=== PATIENT | male | born 1980 | race Two or more races ===

== ENCOUNTER 2019-12-25 11:21 | Emergency (ER) | payer BC, OTHER ==
--- NOTE | 2019-12-25 11:42 | ER Document Report ---
ED Medical Screen (RME) - General Chief Complaint: Chest Tightness Stated Complaint: SHORT OF BREATH,CHEST TIGHTNESS Time Seen by Provider: 12/25/19 11:33 Primary Care Provider: MARISOL MOON [Primary Care Provider] - Follow up as needed Notes: Patient is a 38-year-old male who presents to the emergency department with a chief complaint of shortness of breath and chest tightness that started at 730 this morning. He went to urgent care and was referred here to the emergency department. Patient states that he has a history of asthma when he was a child, but grew out of it. He denies any smoking or drug use. Exam: Sinus rhythm on twelve-lead EKG; clear breath sounds throughout all lung vasquez. I have greeted and performed a rapid initial assessment of this patient. A comprehensive ED assessment and evaluation of the patient, analysis of test results and completion of medical decision making process will be conducted by an additional ED providers. - Related Data Allergies/Adverse Reactions: No Known Allergies Allergy (Verified 07/31/13 11:23) Past Medical History - Immunizations Hx Diphtheria, Pertussis, Tetanus Vaccination: Yes Physical Exam - Vital signs Vitals: Temp Pulse Resp BP Pulse Ox 98.5 F 84 18 145/87 H 97 12/25/19 11:33 12/25/19 11:33 12/25/19 11:33 12/25/19 11:33 12/25/19 11:33 Course - Vital Signs Vital signs: Temp Pulse Resp BP Pulse Ox 98.5 F 84 18 145/87 H 97 12/25/19 11:33 12/25/19 11:33 12/25/19 11:33 12/25/19 11:33 12/25/19 11:33 Doctor's Discharge - Discharge Referrals: MARISOL MOON [Primary Care Provider] - Follow up as needed
[2019-12-25 12:17] LABS: ABSOLUTE EOSINOPHILS # (AUTO) 0.1 10^3/uL (0.0-0.6); ABSOLUTE LYMPHOCYTES (AUTO) 1.5 10^3/uL (0.5-4.7); ABSOLUTE MONOCYTES (AUTO) 0.4 10^3/uL (0.1-1.4); ABSOLUTE NEUT (AUTO) 6.5 10^3/uL (1.7-8.2); BASOPHILS % (AUTO) 0.5 % (0-2); EOSINOPHILS % (AUTO) 0.9 % (0-6); HEMOGLOBIN 15.8 g/dL (13.5-17.0); LYMPHOCYTES % (AUTO) 17.4 % (13-45); MEAN CORPUSCULAR HEMOGLOBIN 31.1 pg (27.0-33.4); MEAN CORPUSCULAR HGB CONC 35.9 g/dL (32.0-36.0); MEAN CORPUSCULAR VOLUME 87 fl (80-97); PLATELET COUNT 368 10^3/uL (150-450); RED BLOOD COUNT 5.07 10^6/uL (4.35-5.55); RED CELL DISTRIBUTION WIDTH 12.2 % (11.5-14.0); SEGMENTED NEUTROPHILS % (AUTO) 76.2 % (42-78); TOTAL CELLS COUNTED % (AUTO) 100 %; WHITE BLOOD COUNT 8.5 10^3/uL (4.0-10.5)
--- NOTE | 2019-12-25 12:19 | RADIOLOGY REPORT (SQ) ---
EXAM DESCRIPTION: CHEST 2 VIEWS COMPLETED DATE/TIME: 12/25/2019 11:51 am REASON FOR STUDY: shortness of breath; chest tightness COMPARISON: None. TECHNIQUE: Frontal and lateral radiographic views of the chest acquired. NUMBER OF VIEWS: Two view. LIMITATIONS: None. FINDINGS: LUNGS AND PLEURA: No opacities, masses or pneumothorax. No pleural effusion. MEDIASTINUM AND HILAR STRUCTURES: No masses or contour abnormalities. HEART AND VASCULAR STRUCTURES: Heart normal size. No evidence for failure. BONES: No acute findings. HARDWARE: None in the chest. OTHER: No other significant finding. IMPRESSION: NO SIGNIFICANT RADIOGRAPHIC FINDING IN THE CHEST. TECHNICAL DOCUMENTATION: JOB ID: [id number] 2010 [employer]- All Rights Reserved Reading location - IP/workstation name: [email or web address]
[2019-12-25 12:34] LABS: ALBUMIN 4.6 g/dL (3.5-5.0); ALKALINE PHOSPHATASE 101 U/L (38-126); ANION GAP 9 (5-19); ASPARTATE AMINO TRANSFERASE 25 U/L (17-59); BILIRUBIN,DIRECT 0.3 mg/dL (0.0-0.4); BILIRUBIN,TOTAL 0.5 mg/dL (0.2-1.3); BLOOD UREA NITROGEN 13 mg/dL (7-20); CALCIUM 9.5 mg/dL (8.4-10.2); CARBON DIOXIDE 25 mmol/L (22-30); CHLORIDE 106 mmol/L (98-107); GLUCOSE 107 mg/dL (75-110); POTASSIUM 4.3 mmol/L (3.6-5.0)
[2019-12-25 12:45] LABS: NT PRO BNP 22 pg/mL (<125)
[2019-12-25 12:46] LABS: TROPONIN I < 0.012 ng/mL
[2019-12-25] MEDS ORDERED: ASPIRIN 81 MG TABLET, CHEWABLE PO ONE (13:54)
[2019-12-25] MEDS ORDERED: NITROGLYCERIN 2% OINTMENT 1 GM PACKET TP ONE (13:54)
--- NOTE | 2019-12-25 14:01 | ER Document Report ---
ED Cardiac - General Chief Complaint: Chest Tightness Stated Complaint: SHORT OF BREATH,CHEST TIGHTNESS Time Seen by Provider: 12/25/19 11:33 Primary Care Provider: MARISOL MOON [NO LOCAL MD] - Follow up as needed Information source: Patient Notes: Patient is a 38-year-old male who is referred here from urgent care for further evaluation of substernal chest pain. Denies radiation. Chest pain started at rest. He has a known history of asthma for which she takes an inhaler. His cardiac risk factors are elevated BMI and hypertension here. He denies any abdominal pain. He has not yet had aspirin; I have ordered the same. Denies trauma. No diaphoresis. Mild shortness of breath with chest tightness. No rashes. No other complaints. No fevers or chills. - Related Data Allergies/Adverse Reactions: No Known Allergies Allergy (Verified 07/31/13 11:23) Past Medical History - General Information source: Patient - Social History Smoking Status: Never Smoker Chew tobacco use (# tins/day): No Frequency of alcohol use: None Drug Abuse: None Family History: None Patient has suicidal ideation: No Patient has homicidal ideation: No - Immunizations Hx Diphtheria, Pertussis, Tetanus Vaccination: Yes Review of Systems - Review of Systems Cardiovascular: Chest pain. denies: Palpitations Respiratory: Short of breath. denies: Cough -: Yes All other systems reviewed and negative Physical Exam - Vital signs Vitals: Temp Pulse Resp BP Pulse Ox 98.5 F 84 18 145/87 H 97 12/25/19 11:33 12/25/19 11:33 12/25/19 11:33 12/25/19 11:33 12/25/19 11:33 Interpretation: Hypertensive - General General appearance: Appears well - HEENT Head: Normocephalic Nasal: Normal Mucous membranes: Normal Pharynx: Normal - Respiratory Respiratory status: No respiratory distress Chest status: Nontender Breath sounds: Normal Chest palpation: Normal - Cardiovascular Rhythm: Regular Heart sounds: Normal auscultation Murmur: No - Abdominal Inspection: Normal Distension: No distension Tenderness: Nontender - Back Back: Normal. No: CVA tenderness - Extremities General upper extremity: Normal inspection, Normal ROM General lower extremity: Normal inspection, Normal ROM - Neurological Neuro grossly intact: Yes Cognition: Normal - Psychological Associated symptoms: Normal affect, Normal mood - Skin Skin Temperature: Warm Skin Moisture: Dry Course - Re-evaluation Re-evalutation: 12/25/19 13:59 EKG per mt shows normal sinus rhythm at a rate of 86 with left axis deviation and nonspecific ST changes. No old EKG for comparison. Lab work reviewed including a negative troponin. Chest x-ray per radiologist no acute disease. Given patient's cardiac risk factors I will call the hospitalist for admission. Patient is currently stable. 12/25/19 14:[address] LA, WHO REQUESTS ADMISSION VIA DR. LOVE. PT STABLE. 12/25/19 14:16 DISCUSSED CASE IN DETAIL WITH DR. LOVE, WHO REQUESTS 3PM TROPONIN AND WILL DISCUSS WITH COMPLEX DIRECTOR. 12/25/19 16:[address] MORRIS AT 4PM, PENDING REPEAT TROPONIN TEST AND DISPOSITION. PT COMFORTABLE. - Vital Signs Vital signs: Temp Pulse Resp BP Pulse Ox 98.5 F 84 20 115/54 L 91 L 12/25/19 11:33 12/25/19 11:33 12/25/19 15:01 12/25/19 15:01 12/25/19 15:01 - Laboratory Result Diagrams: 12/25/19 12:04 12/25/19 12:04 Discharge - Discharge Clinical Impression: Chest pain Qualifiers: Chest pain type: unspecified Qualified Code(s): R07.9 - Chest pain, unspecified Hypertension Qualifiers: Hypertension type: unspecified Qualified Code(s): I10 - Essential (primary) hypertension Condition: Stable Disposition: ADMITTED INPATIENT Admitting Provider: Mike (Hospitalist) Unit Admitted: Telemetry Referrals: MARISOL MOON [NO LOCAL MD] - Follow up as needed
--- NOTE | 2019-12-25 15:27 | EKG REPORT ---
SEVERITY:- BORDERLINE ECG - SINUS RHYTHM BORDERLINE LEFT AXIS DEVIATION NONSPECIFIC IVCD : Confirmed by: Pavel Rosario MD 25-Dec-2019 15:26:32
[2019-12-25 17:27] VITALS: BP 134/75
== END 2019-12-25 17:16 | disposition home or self-care (01) ==
LOC: ER 11:21 → EH 16:17 → UNDOADMIN 16:17 → UNDODISIN 17:16 → EH 17:16
DX: R07.9 Chest pain, unspecified (principal); I10 Essential (primary) hypertension; R06.02 Shortness of breath; J45.909 Unspecified asthma, uncomplicated; Z79.51 Long term (current) use of inhaled steroids
CPT/HCPCS: 36415; 71046; 80053; 83880; 84484; 85025; 93005; 93010; 99285

== ENCOUNTER 2019-12-29 21:04 | Emergency (ER) | payer BC ==
--- NOTE | 2019-12-29 22:07 | EKG REPORT ---
SEVERITY:- ABNORMAL ECG - SINUS RHYTHM NONSPECIFIC INTRAVENTRICULAR CONDUCTION DELAY : Confirmed by: Pavel Rosario MD 29-Dec-2019 22:07:32
[2019-12-30 00:17] VITALS: BP 130/69
--- NOTE | 2019-12-30 01:13 | ER Document Report ---
HPI - HPI Time Seen by Provider: 12/30/19 01:03 Pain Level: Denies Notes: Otherwise healthy 39-year-old male presenting to the emergency department chief complaint of shortness of breath. Patient reports he had shortness of breath a few days ago, was seen in the emergency department and had a normal exam. Patient reports he was sent home with an albuterol inhaler and albuterol for his nebulizer machine. Patient reports earlier today he was feeling anxious and st arted having some shortness of breath. At the time of my evaluation patient reports all symptoms have resolved. - CONSTITUTIONAL Constitutional: DENIES: Fever, Chills - EENT EENT: DENIES: Sore Throat, Ear Pain, Eye problems - NEURO Neurology: DENIES: Headache, Weakness, Vision blurred, Dizzinesss / Vertigo - CARDIOVASCULAR Cardiovascular: DENIES: Chest pain - RESPIRATORY Respiratory: REPORTS: Trouble Breathing - SOB. DENIES: Coughing - GASTROINTESTINAL Gastrointestinal: DENIES: Abdominal Pain, Black / Bloody Stools - URINARY Urinary: DENIES: Dysuria, Urgency, Frequency - MUSCULOSKELETAL Musculoskeletal: DENIES: Extremity pain Past Medical History - General Information source: Patient - Social History Smoking Status: Never Smoker Chew tobacco use (# tins/day): No Frequency of alcohol use: None Drug Abuse: None Family History: None Patient has suicidal ideation: No Patient has homicidal ideation: No Pulmonary Medical History: Reports: Hx Asthma - childhood - Immunizations Hx Diphtheria, Pertussis, Tetanus Vaccination: Yes Vertical Provider Document - CONSTITUTIONAL Notes: PHYSICAL EXAMINATION: GENERAL: Well-appearing, well-nourished and in no acute distress. HEAD: Atraumatic, normocephalic. EYES: Pupils equal round and reactive to light, extraocular movements intact, sclera anicteric, conjunctiva are normal. ENT: Nares patent, oropharynx clear without exudates. Moist mucous membranes. NECK: Normal range of motion, supple without lymphadenopathy LUNGS: Breath sounds clear to auscultation bilaterally and equal. No wheezes rales or rhonchi. HEART: Regular rate and rhythm without murmurs ABDOMEN: Soft, nontender, nondistended abdomen. No guarding, no rebound. No m asses appreciated. Musculoskeletal: Normal range of motion, no pitting or edema. No cyanosis. NEUROLOGICAL: Cranial nerves grossly intact. Normal speech, normal gait. Normal sensory, motor exams PSYCH: Normal mood, normal affect. SKIN: Warm, Dry, normal turgor, no rashes or lesions noted. Course - Re-evaluation Re-evalutation: 12/30/19 01:18 Patient appears well, nontoxic. At the time of my initial evaluation patient has been waiting in the lobby for about 3 hours. His initial vital signs coming into the emergency department were within normal limits. According to the triage nurses notes he had no tachypnea, hypoxia or shortness of breath in triage. She reports his lungs were clear at that time. At the time of my evaluation patient has had a second set of vital signs which were also normal. His lung sounds are clear and equal bilaterally. He denies any shortness of breath and states that he is feeling improved. He has an appointment set up with cardiology for Monday as he was here the other day with some shortness of breath and chest pain. Patient adamantly denies any symptoms at this time and will be discharged home in stable condition. - Vital Signs Vital signs: Temp Pulse Resp BP Pulse Ox 98.0 F 59 L 18 130/69 H 97 12/30/19 00:17 12/30/19 00:17 12/29/19 21:42 12/30/19 00:17 12/30/19 00:17 Discharge - Discharge Clinical Impression: Shortness of breath Condition: Stable Disposition: HOME, SELF-CARE Additional Instructions: Your vital signs were reassuring here in the emergency department today. Since your shortness of breath has resolved I do not think we will benefit from doing any further work-up today. Please keep the appointment you have with your home demonstrator. Continue to use albuterol treatments if needed for shortness of breath. Return to the emergency department for any new or life-threatening concerns.
== END 2019-12-30 01:17 | disposition home or self-care (01) ==
LOC: ER 21:04
DX: R06.02 Shortness of breath (principal)
CPT/HCPCS: 93005; 93010; 99283

== ENCOUNTER → 2020-07-14 | Outpatient (CLI) | payer BC ==
--- NOTE | 2020-07-14 16:13 | RADIOLOGY REPORT (SQ) ---
EXAM DESCRIPTION: CHEST PA/LATERAL IMAGES COMPLETED DATE/TIME: 07/14/2020 4:00 pm REASON FOR STUDY: (R06.00) DYSPNEA COMPARISON: 12/25/2019 EXAM PARAMETERS: NUMBER OF VIEWS: two views TECHNIQUE: Digital Frontal and Lateral radiographic views of the chest acquired. RADIATION DOSE: NA LIMITATIONS: none FINDINGS: LUNGS AND PLEURA: No opacities, masses or pneumothorax. No pleural effusion. MEDIASTINUM AND HILAR STRUCTURES: No masses or contour abnormalities. HEART AND VASCULAR STRUCTURES: Heart normal size. No evidence for failure. BONES: No acute findings. HARDWARE: None in the chest. OTHER: No other significant finding. IMPRESSION: NO SIGNIFICANT RADIOGRAPHIC FINDING IN THE CHEST. TECHNICAL DOCUMENTATION: JOB ID: [id number] 2010 [employer]- All Rights Reserved Reading location - IP/workstation name: [email or web address]
== END ==
LOC: OD 15:50
PROVIDERS: ATTEND Internal Medicine Pulmonary Disease
DX: R06.00 Dyspnea, unspecified (principal)
CPT/HCPCS: 71046

== ENCOUNTER 2020-08-29 19:47 | Emergency (ER) | payer BC ==
--- NOTE | 2020-08-29 20:48 | ER Document Report ---
ED Medical Screen (RME) - General Chief Complaint: Shortness Of Breath Stated Complaint: SHORTNESS OF BREATH, POSITIVE COVID 10DAYS AGO Time Seen by Provider: 08/29/20 20:40 Primary Care Provider: YAYO CAMACHO MD [Primary Care Provider] - Follow up as needed Mode of Arrival: Ambulatory Information source: Patient Notes: 39-year-old male presents to ED for complaint of shortness of breath. He states is been short of breath and coughing worse for the last couple days. He states he was short of breath coughing and was fever a couple weeks ago but the fever is gone now. He states he was tested 10 days ago and tested positive for Covid. He states now the cough is nonproductive but he still has cough and wheezing. He is alert oriented respirations regular nonlabored at this time. He does have an elevated blood pressure. He states he is never been told he had elevated blood pressure in the past. I have greeted and performed a rapid initial assessment of this patient. A comprehensive ED assessment and evaluation of the patient, analysis of test results and completion of medical decision making process will be conducted by an additional ED providers. - Related Data Allergies/Adverse Reactions: No Known Allergies Allergy (Verified 07/31/13 11:23) Past Medical History Pulmonary Medical History: Reports: Hx Asthma - childhood - Immunizations Hx Diphtheria, Pertussis, Tetanus Vaccination: Yes Physical Exam - Vital signs Vitals: Temp Pulse Resp BP Pulse Ox 98.5 F 89 18 161/101 H 97 08/29/20 20:01 08/29/20 20:01 08/29/20 20:01 08/29/20 20:01 08/29/20 20:01 Course - Vital Signs Vital signs: Temp Pulse Resp BP Pulse Ox 98.5 F 89 18 161/101 H 97 08/29/20 20:01 08/29/20 20:01 08/29/20 20:01 08/29/20 20:01 08/29/20 20:01 Doctor's Discharge - Discharge Referrals: YAYO CAMACHO MD [Primary Care Provider] - Follow up as needed
--- NOTE | 2020-08-29 22:30 | ER Document Report ---
ED Respiratory Problem - General Stated Complaint: SHORTNESS OF BREATH Time Seen by Provider: 08/29/20 20:40 Primary Care Provider: SHASHI ASHTON MD [Primary Care Provider] - Follow up as needed Mode of Arrival: Ambulatory Notes: Patient is a 39-year-old male who comes emergency department for chief complaint of shortness of breath. Patient states that since yesterday he has had a sensation frequently that he cannot get a deep breath, he has intermittent discomfort over the front of his chest as well. He denies fever, dizziness, wheezing. He states he has an occasional mild cough. He states that 10 days ago he was positive for COVID-19, he had 2 days of chills, body aches, nonproductive cough, and then symptoms basically resolved. He states he felt a lot better until yesterday. He denies any other symptoms including lower extremity swelling, recent travel. He reports medical history of "allergic asthma", states that occasionally he will have an asthma exacerbation, he states he tried using his albuterol nebulizer earlier and it seemed to help briefly. He denies any positive family history other than high blood pressure. He denies frequent alcohol or recreational drugs, denies smoking. - Related Data Allergies/Adverse Reactions: No Known Allergies Allergy (Verified 07/31/13 11:23) Past Medical History - General Information source: Patient - Social History Smoking Status: Never Smoker Frequency of alcohol use: None Drug Abuse: None Lives with: Family Family History: None Pulmonary Medical History: Reports: Hx Asthma - childhood - Immunizations Hx Diphtheria, Pertussis, Tetanus Vaccination: Yes Review of Systems - Review of Systems Constitutional: See HPI EENT: No symptoms reported Cardiovascular: See HPI Respiratory: See HPI Gastrointestinal: No symptoms reported Genitourinary: No symptoms reported Male Genitourinary: No symptoms reported Musculoskeletal: No symptoms reported Skin: No symptoms reported Hematologic/Lymphatic: No symptoms reported Neurological/Psychological: No symptoms reported Physical Exam - Vital signs Vitals: Temp Pulse Resp BP Pulse Ox 98.5 F 89 18 161/101 H 97 08/29/20 20:01 08/29/20 20:01 08/29/20 20:01 08/29/20 20:01 08/29/20 20:01 - Notes Notes: GENERAL: Alert, interacts well. No acute distress. HEAD: Normocephalic, atraumatic. EYES: Pupils equal, round, and reactive to light. Extraocular movements intact. ENT: Oral mucosa moist, tongue midline. Oropharynx unremarkable. Airway patent. NECK: Full range of motion. Supple. Trachea midline. No lymphadenopathy. LUNGS: Clear to auscultation bilaterally, no wheezes, rales, or rhonchi. No respiratory distress. Non-tender chest wall. Some pleuritic pain HEART: Regular rate and rhythm. No murmur ABDOMEN: Soft, non-tender. Non-distended. EXTREMITIES: Moves all 4 extremities spontaneously. No edema, normal radial and dorsalis pedis pulses bilaterally. No cyanosis. BACK: no cervical, thoracic, lumbar midline tenderness. No saddle anesthesia, normal distal neurovascular exam. Moves all extremities in full range of motion. NEUROLOGICAL: Alert and oriented x3. Normal speech. Cranial nerves II through XII grossly intact. Strength 5/5 in all extremities. PSYCH: Normal affect, normal mood. SKIN: Warm, dry, normal turgor. No rashes or lesions noted. Course - Re-evaluation Re-evalutation: Patient does not have chest wall pain but he has pleuritic pain, chest disc omfort, sensation of shortness of breath. He is not tachycardic, hypoxic, hypotensive, or febrile. Is nontoxic in appearance. Chest x-ray shows possible mild vascular congestion although BNP was checked and unremarkable. Troponin is negative, symptoms been present since yesterday, D-dimer slightly elevated, patient recently with COVID-19 infection. CBC, chemistry unremarkable. Discussed with patient, CTA will be performed to rule out blood clot secondary to COVID-19 infection. CTA is negative for any acute or concerning findings, shows some atelectasis. Based on his work-up and evaluation I suspect pleurisy as a cause of his symptoms, low suspicion of emergent intrathoracic etiology based on his evaluation and work-up. Patient was given dexamethasone, discussed expectations, follow-up, return precautions. Patient states understanding and agreement. Stable and well-appearing at time of discharge. - Vital Signs Vital signs: Temp Pulse Resp BP Pulse Ox 98.2 F 63 18 143/88 H 99 08/30/20 02:00 08/30/20 02:00 08/30/20 02:00 08/30/20 02:00 08/30/20 02:00 - Laboratory Result Diagrams: 08/29/20 22:34 08/29/20 22:34 Laboratory results interpreted by me: 08/29/20 08/29/20 22:34 23:08 MCHC 36.1 H D-Dimer 0.67 H - EKG Interpretation by Me Additional EKG results interpreted by me: EKG shows sinus rhythm at a rate of 67, QTc 393, normal axis, no T wave inversions or ST segment changes in consecutive leads Discharge - Discharge Clinical Impression: Shortness of breath Chest pain Qualifiers: Chest pain type: unspecified Qualified Code(s): R07.9 - Chest pain, unspecified Condition: Stable Disposition: HOME, SELF-CARE Additional Instructions: Your imaging and work-up does not show any concerning findings. Your evaluation is most consistent with pleurisy, this can occur after a COVID-19 infection. This should simply resolve with time, you have been treated for this. You can continue to use your albuterol inhaler. Follow-up with primary care. Return if you worsen including severe pain, difficulty breathing, spiking fever, passing out, or any other concerning symptoms. Forms: Return to Work, Elevated Blood Pressure Referrals: SHASHI ASHTON MD [Primary Care Provider] - Follow up as needed
--- NOTE | 2020-08-29 22:39 | RADIOLOGY REPORT (SQ) ---
EXAM DESCRIPTION: XR CHEST 1 VIEW COMPLETED DATE/TME: 08/29/2020 22:07 CLINICAL HISTORY: 39 years, Male, Chest pain short of breath tight EXAM DESCRIPTION: CHEST SINGLE VIEW CLINICAL HISTORY: Chest pain short of breath tight COMPARISON: None. FINDINGS: Single view of the chest is submitted. Cardiac silhouette is normal. There is mild pulmonary edema. No focal parenchymal or pleural disease. There is pulmonary vascular engorgement. IMPRESSION: Mild pulmonary edema.
[2020-08-29 23:18] LABS: ABSOLUTE BASOPHILS # (AUTO) 0.1 10^3/uL (0.0-0.2); ABSOLUTE EOSINOPHILS # (AUTO) 0.1 10^3/uL (0.0-0.6); ABSOLUTE LYMPHOCYTES (AUTO) 2.5 10^3/uL (0.5-4.7); ABSOLUTE MONOCYTES (AUTO) 0.6 10^3/uL (0.1-1.4); ABSOLUTE NEUT (AUTO) 5.7 10^3/uL (1.7-8.2); BASOPHILS % (AUTO) 0.6 % (0-2); EOSINOPHILS % (AUTO) 1.4 % (0-6); HEMATOCRIT 42.2 % (37.9-51.0); HEMOGLOBIN 15.2 g/dL (13.5-17.0); LYMPHOCYTES % (AUTO) 27.5 % (13-45); MEAN CORPUSCULAR HEMOGLOBIN 31.5 pg (27.0-33.4); MEAN CORPUSCULAR HGB CONC 36.1 g/dL (32.0-36.0); MEAN CORPUSCULAR VOLUME 87 fl (80-97); MONOCYTES % (AUTO) 6.5 % (3-13); PLATELET COUNT 352 10^3/uL (150-450); RED BLOOD COUNT 4.84 10^6/uL (4.35-5.55); RED CELL DISTRIBUTION WIDTH 12.2 % (11.5-14.0); TOTAL CELLS COUNTED % (AUTO) 100 %; WHITE BLOOD COUNT 8.9 10^3/uL (4.0-10.5)
[2020-08-29 23:26] LABS: ALBUMIN 4.2 g/dL (3.5-5.0); ALKALINE PHOSPHATASE 93 U/L (38-126); ANION GAP 7 (5-19); ASPARTATE AMINO TRANSFERASE 24 U/L (17-59); BILIRUBIN,DIRECT 0.1 mg/dL (0.0-0.4); BILIRUBIN,TOTAL 0.6 mg/dL (0.2-1.3); BLOOD UREA NITROGEN 12 mg/dL (7-20); CALCIUM 9.4 mg/dL (8.4-10.2); CARBON DIOXIDE 26 mmol/L (22-30); CHLORIDE 106 mmol/L (98-107); GLUCOSE 93 mg/dL (75-110); POTASSIUM 4.2 mmol/L (3.6-5.0); TOTAL PROTEIN 7.1 g/dL (6.3-8.2)
--- NOTE | 2020-08-30 01:10 | RADIOLOGY REPORT (SQ) ---
EXAM DESCRIPTION: CT CHEST WITH INTRAVENOUS CONTRAST CLINICAL HISTORY: Chest pain, shortness of breath, history of COVID-19 10 days prior. COMPARISON: None available. TECHNIQUE: CT of the chest was performed with intravenous contrast using pulmonary embolism protocol, followed by CTA of the pulmonary arterial vasculature, with 3D reconstruction of the pulmonary arterial vasculature. The patient was injected with 100 mL Omnipaque [address] exam was performed according to our departmental dose-optimization program, which includes one or more of the following dose reduction techniques: automated exposure control, adjustment of the mA and/or kV according to patient size, and/or use of iterative reconstruction technique. FINDINGS: There are no filling defects in the main pulmonary trunk, first order or the visualized lower order branches of the bilateral pulmonary arteries, to suggest pulmonary embolism. There is no evidence of clinically significant thoracic aortic aneurysm or thoracic aortic dissection. There is no evidence of clinically significant pericardial effusion. Minimal lingular patchy opacities are favored to represent atelectatic change. Minimal basilar atelectatic changes are also noted. There are otherwise no airspace infiltrates, pleural effusions or pneumothoraces in the visualized lung vasquez. There is no pathological axillary, supraclavicular, mediastinal or hilar lymphadenopathy. No suspicious lytic or blastic osseous lesions are identified. The visualized upper abdominal structures seen on the exam appear unremarkable. IMPRESSION: 1. No CT evidence of acute pulmonary embolism. 2. Minimal lingular patchy opacities are favored to represent atelectatic change.
[2020-08-30] MEDS ORDERED: DEXAMETHASONE SOD PHOS INJ 10 MG/1 ML VIAL IV ONE (01:25)
[2020-08-30 02:01] VITALS: BP 143/88
--- NOTE | 2020-08-30 08:46 | EKG REPORT ---
SEVERITY:- NORMAL ECG - SINUS RHYTHM : Confirmed by: Pavel Rosario MD 30-Aug-2020 08:45:00
== END 2020-08-30 02:04 | disposition home or self-care (01) ==
LOC: ER 19:47
DX: U07.1 COVID-19 (principal); R07.81 Pleurodynia; J45.909 Unspecified asthma, uncomplicated; J98.11 Atelectasis; R06.02 Shortness of breath; R05 Cough; Z79.899 Other long term (current) drug therapy; R79.89 Other specified abnormal findings of blood chemistry
CPT/HCPCS: 93005; 99285; 96374; 36415; 85025; 80053; 84484; 85379; 83880; 71045; 71275; 93010; U0003; J1100; C9803; 87635

== ENCOUNTER 2020-09-04 15:42 | Emergency (ER) | payer BC ==
--- NOTE | 2020-09-04 16:03 | ER Document Report ---
ED Medical Screen (RME) - General Chief Complaint: Chest Pain Stated Complaint: CHEST PAIN Time Seen by Provider: 09/04/20 16:00 Primary Care Provider: SHASHI ASHTON MD [Primary Care Provider] - Follow up as needed Mode of Arrival: Ambulatory Information source: Patient Notes: 39-year-old male presented to ED for chest tightness to to both sides. He states he was in the emergency room on Monday and was diagnosed with pleurisy. He states now he just cannot get a nice deep breath. He is alert oriented he is breathing normally at this time. His side is 96%. Lungs are clear at this time. He states he had an appointment to go see the assessment services manager today when he got to the assessment services manager office they told him that he would see him next week but he needed another x-ray before coming in. We will get blood x-ray is already had the EKG and he will be seen by another provider. I have greeted and performed a rapid initial assessment of this patient. A comprehensive ED assessment and evaluation of the patient, analysis of test results and completion of medical decision making process will be conducted by an additional ED providers. - Related Data Allergies/Adverse Reactions: No Known Allergies Allergy (Verified 07/31/13 11:23) Past Medical History Pulmonary Medical History: Reports: Hx Asthma - childhood - Immunizations Hx Diphtheria, Pertussis, Tetanus Vaccination: Yes Physical Exam - Vital signs Vitals: Temp Pulse Resp BP Pulse Ox 98.8 F 90 18 133/72 H 96 09/04/20 15:57 09/04/20 15:57 09/04/20 15:57 09/04/20 15:57 09/04/20 15:57 Course - Vital Signs Vital signs: Temp Pulse Resp BP Pulse Ox 98.8 F 90 18 133/72 H 96 09/04/20 15:57 09/04/20 15:57 09/04/20 15:57 09/04/20 15:57 09/04/20 15:57 Doctor's Discharge - Discharge Referrals: SHASHI ASHTON MD [Primary Care Provider] - Follow up as needed
[2020-09-04 17:11] LABS: INTERNATIONAL RATION (INR) 0.97; PARTIAL THROMBOPLASTIN TIME 30.6 SEC (23.5-35.8)
--- NOTE | 2020-09-04 17:11 | RADIOLOGY REPORT (SQ) ---
EXAM DESCRIPTION: CHEST 2 VIEWS IMAGES COMPLETED DATE/TIME: 09/04/2020 1:59 pm REASON FOR STUDY: Chest tight COMPARISON: 08/29/2020 EXAM PARAMETERS: NUMBER OF VIEWS: two views TECHNIQUE: Digital Frontal and Lateral radiographic views of the chest acquired. RADIATION DOSE: NA LIMITATIONS: none FINDINGS: LUNGS AND PLEURA: No opacities, masses or pneumothorax. No pleural effusion. MEDIASTINUM AND HILAR STRUCTURES: No masses or contour abnormalities. HEART AND VASCULAR STRUCTURES: Heart normal size. No evidence for failure. BONES: No acute findings. HARDWARE: None in the chest. OTHER: No other significant finding. IMPRESSION: NO ACUTE RADIOGRAPHIC FINDING IN THE CHEST. TECHNICAL DOCUMENTATION: JOB ID: [id number] [employer]- All Rights Reserved Reading location - IP/workstation name: [email or web address]
--- NOTE | 2020-09-04 17:15 | EKG REPORT ---
SEVERITY:- OTHERWISE NORMAL ECG - SINUS RHYTHM LEFT AXIS DEVIATION : Confirmed by: Jonnathan Campbell MD 04-Sep-2020 17:14:44
[2020-09-04 17:24] LABS: ABSOLUTE EOSINOPHILS # (AUTO) 0.3 10^3/uL (0.0-0.6); ABSOLUTE MONOCYTES (AUTO) 0.6 10^3/uL (0.1-1.4); ABSOLUTE NEUT (AUTO) 5.6 10^3/uL (1.7-8.2); BASOPHILS % (AUTO) 0.4 % (0-2); EOSINOPHILS % (AUTO) 3.7 % (0-6); HEMATOCRIT 39.8 % (37.9-51.0); HEMOGLOBIN 14.5 g/dL (13.5-17.0); LYMPHOCYTES % (AUTO) 23.4 % (13-45); MEAN CORPUSCULAR HEMOGLOBIN 31.9 pg (27.0-33.4); MEAN CORPUSCULAR HGB CONC 36.4 g/dL (32.0-36.0); MEAN CORPUSCULAR VOLUME 88 fl (80-97); MONOCYTES % (AUTO) 6.6 % (3-13); PLATELET COUNT 372 10^3/uL (150-450); RED BLOOD COUNT 4.54 10^6/uL (4.35-5.55); RED CELL DISTRIBUTION WIDTH 12.3 % (11.5-14.0); SEGMENTED NEUTROPHILS % (AUTO) 65.9 % (42-78); TOTAL CELLS COUNTED % (AUTO) 100 %; WHITE BLOOD COUNT 8.4 10^3/uL (4.0-10.5)
[2020-09-04 17:31] LABS: ALBUMIN 4.1 g/dL (3.5-5.0); ALKALINE PHOSPHATASE 76 U/L (38-126); ANION GAP 6 (5-19); ASPARTATE AMINO TRANSFERASE 23 U/L (17-59); BILIRUBIN,DIRECT 0.2 mg/dL (0.0-0.4); BILIRUBIN,TOTAL 0.7 mg/dL (0.2-1.3); BLOOD UREA NITROGEN 9 mg/dL (7-20); CALCIUM 9.2 mg/dL (8.4-10.2); CARBON DIOXIDE 27 mmol/L (22-30); CHLORIDE 107 mmol/L (98-107); GLUCOSE 118 mg/dL (75-110); POTASSIUM 4.2 mmol/L (3.6-5.0); TOTAL PROTEIN 6.9 g/dL (6.3-8.2)
--- NOTE | 2020-09-04 19:55 | ER Document Report ---
ED Cardiac - General Chief Complaint: Chest Tightness Stated Complaint: CHEST PAIN Time Seen by Provider: 09/04/20 16:00 Primary Care Provider: SHASHI ASHTON MD [Primary Care Provider] - Follow up as needed Mode of Arrival: Ambulatory Information source: Patient Notes: 39-year-old male presents to ED for evaluation of increased shortness of breath and chest discomfort worsening within the last day. Patient reports he had recently been diagnosed with Covid19 and has completed his 2-week course of isolation. Patient states that he was seen here for similar complaints last weekend and was diagnosed with pleurisy. Reports he had been given a one-time dose of Decadron with improvement however notes that he went back to work within the last day and had done some mild lifting with worsening symptoms. He reports that the discomfort is diffuse throughout the chest. Dates he feels like he cannot get a big deep breath in. He denies any nausea or vomiting. Denies continued fevers or chills. Denies flank pain. Denies orthopnea. She was post to see pulmonology today however they recommended he have a chest XR and cardiac evaluation prior to being seen. Notes that pain is less intense when he is still. - Related Data Allergies/Adverse Reactions: No Known Allergies Allergy (Verified 09/04/20 18:05) Past Medical History - General Information source: Patient - Social History Smoking Status: Never Smoker Chew tobacco use (# tins/day): No Frequency of alcohol use: None Drug Abuse: None Family History: None Patient has homicidal ideation: No Pulmonary Medical History: Reports: Hx Asthma - childhood Other: COVID-19 - Immunizations Hx Diphtheria, Pertussis, Tetanus Vaccination: Yes Review of Systems - Review of Systems Notes: Constitutional: Negative for fever. HENT: Negative for sore throat. Eyes: Negative for visual changes. Cardiovascular: Positive for chest pain with inspiration. Respiratory: Positive for shortness of breath. Gastrointestinal: Negative for abdominal pain, vomiting or diarrhea. Genitourinary: Negative for dysuria. Musculoskeletal: Negative for back pain. Skin: Negative for rash. Neurological: Negative for headaches, weakness or numbness. 10 point ROS negative except as marked above and in HPI. Physical Exam - Vital signs Vitals: Temp Pulse Resp BP Pulse Ox 98.8 F 90 18 133/72 H 96 09/04/20 15:57 09/04/20 15:57 09/04/20 15:57 09/04/20 15:57 09/04/20 15:57 PHYSICAL EXAMINATION: GENERAL: Well-appearing, well-nourished and in no acute distress. HEAD: Atraumatic, normocephalic. EYES: Pupils equal round and reactive to light, extraocular movements intact, sclera anicteric, conjunctiva are normal. ENT: nares patent, oropharynx clear without exudates. Moist mucous membranes. NECK: Normal range of motion, supple without lymphadenopathy LUNGS: Breath sounds clear to auscultation bilaterally and equal. No wheezes rales or rhonchi. HEART: Regular rate and rhythm without murmurs. tenderness to palpation along anterior chest. ABDOMEN: Soft, nontender, normoactive bowel sounds. No guarding, no rebound. No masses appreciated. EXTREMITIES: Normal range of motion, no pitting or edema. No cyanosis. NEUROLOGICAL: No focal neurological deficits. Moves all extremities spo ntaneously and on command. PSYCH: Normal mood, normal affect. SKIN: Warm, Dry, normal turgor, no rashes or lesions noted. Course - Re-evaluation Re-evalutation: 09/04/20 20:30 39-year-old male presents to ED for evaluation of chest discomfort with shortness of breath after course of Covid. He was seen here this past week and diagnosed with pleurisy. Pain got better after steroids and anti-inflammatory medications. He had returned to work today and was doing mildly heavy lifting when pain increased. He notes it is better when he is sitting still. Patient was sent after speaking with pulmonology for evaluation. Patient was evaluated with 2 troponins which are both negative at this time. EKG is unrevealing. Chest x-ray does not show evidence of acute cardiopulmonary pathology as reviewed by myself. Patient's heart score at this time is 0. PERC score is 0. Patient does not need further imaging at this time. Given a course of patient steroids with a Medrol Dosepak as well as a dose of Solu-Medrol in the emergency department. Also given a dose of Toradol and will be continued on Tordol for further management. 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 Advised to return for any new or worsening symptoms. He is advised to use an incentive spirometer 10 times every hour while awake. Advised to avoid any heavy lifting or twisting. Understands course of management. Patient is in agreement with care plan. 09/04/20 20:33 - Vital Signs Vital signs: Temp Pulse Resp BP Pulse Ox 98.6 F 77 18 139/67 H 96 09/04/20 19:39 09/04/20 19:39 09/04/20 19:39 09/04/20 19:39 09/04/20 19:39 - Laboratory Result Diagrams: 09/04/20 16:31 09/04/20 16:31 Laboratory results interpreted by me: 09/04/20 09/04/20 16:31 16:31 MCHC 36.4 H Glucose 118 H - Diagnostic Test Radiology reviewed: Image reviewed Radiology results interpreted by me: 09/04/20 20:30 CXR reviewed by myself to be negative for acute findings. - EKG Interpretation by Me Additional EKG results interpreted by me: 09/04/20 20:32 NSR 83 BPM NE 156 QRSD 96 QT 344 QTc 405 AXIS P 57 QRS -32 T 23 No change from prior. Discharge - Discharge Clinical Impression: Pleurisy without effusion, History of 2019 novel coronavirus disease (COVID-19) Dyspnea Qualifiers: Dyspnea type: shortness of breath Qualified Code(s): R06.02 - Shortness of breath Condition: Stable Disposition: HOME, SELF-CARE Instructions: Chest Wall Pain ([facility]) Additional Instructions: Avoid heavy lifting and twisting. Abstain from lifting any more than 5 pounds. Use incentive spirometer 10 times each hour while awake. Follow up with pulmonology. Prescriptions: Methylprednisolone [Medrol Dosepack (4 mg/Tab) 21 Tab/Dosepak] 21 tab PO ASDIR #21 dspk Ketorolac Tromethamine [Toradol 10 mg Tablet] 10 mg PO TID #15 tablet Albuterol Sulfate [Ventolin 0.083% Neb 2.5 mg/3 mL Ampul] 2.5 mg NEB Q4H #30 vial.neb Referrals: SHASHI ASHTON MD [Primary Care Provider] - Follow up as needed
[2020-09-04] MEDS ORDERED: METHYLPREDNISOLONE INJ 125 MG/2 ML SDV IV ONE (20:09)
[2020-09-04] MEDS ORDERED: KETOROLAC TROMETHAMINE INJ/PF 30 MG/1 ML SDV IV ONE (20:10)
[2020-09-04] MEDS ORDERED: METHYLPREDNISOLONE INJ 125 MG/2 ML SDV IM ONE (20:18)
[2020-09-04] MEDS ORDERED: KETOROLAC TROMETHAMINE 60 MG/2 ML SDV IM ONE (20:18)
[2020-09-04 21:04] VITALS: BP 139/95
== END 2020-09-04 21:03 | disposition home or self-care (01) ==
LOC: ER 15:42
DX: R09.1 Pleurisy (principal); R06.02 Shortness of breath; R07.1 Chest pain on breathing; Z86.19 Personal history of other infectious and parasitic diseases
CPT/HCPCS: 93005; 99285; 96372; 96374; 96375; 36415; 83735; 85025; 85610; 85730; 80053; 84484; 71046; 93010; J1885; J2930